=== PATIENT | female | born 1995 | race Caucasian/White ===

== ENCOUNTER 2021-02-02 07:35 | Day surgery (SDC) | payer OTHER ==
--- NOTE | 2021-01-26 11:24 | History and Physical Report ---
History of Present Illness Date of examination: 01/26/21 Chief complaint: desiring permanent sterilization History of present illness: 25 yo c/b asthma (advair PRN), bipolar disorder (no meds), fibroid uterus (on prometrium), hx HSV (on valtrex suppression), hx Chlamydia presenting daniel ing permanent sterilization. Completed childbearing and no longer wishes to conceive. Past History Past Medical History: asthma, other (bipolar disorder, fibroid uterus) Past Surgical History: other (tooth extraction) [employer] History: chlamydia, herpes Family/Genetic History: heart disease Social history: no significant social history - Obstetrical History : 4 Para: 4 Hx # Term Pregnancies: 4 Number of Living Children: 4 Medications and Allergies Allergies Allergy/AdvReac Type Severity Reaction Status Date / Time albuterol Allergy Intermediate Hives Uncoded 01/27/21 19:41 Home Medications Medication Instructions Recorded Confirmed Last Taken Type Progesterone, Micronized 200 mg PO QPM 01/27/21 01/27/21 Unknown History [Progesterone] Valacyclovir HCl [Valacyclovir] 500 mg PO DAILY 01/27/21 01/27/21 Unknown History Review of Systems All systems: negative (expect HPI) - Physical Exam Cardiovascular: Regular rate Lungs: Positive: Clear to auscultation Abdomen: Positive: normal appearance, normal bowel sounds Uterus: Positive: normal size Extremities: Positive: normal Results Result Diagrams: 01/28/21 09:30 All other labs normal. Assessment and Plan - Patient Problems (1) Sterilization Current Visit: No Status: Acute Plan to address problem: To OR for GRANT Garvin --Consented in the chart --Questions solicited and answered
[2021-01-28 09:46] LABS: Basophils # (Auto) 0.1 K/mm3 (0.0-0.1); Basophils % (Auto) 0.9 % (0.0-1.8); Eosinophils # (Auto) 0.1 K/mm3 (0.0-0.4); Eosinophils % (Auto) 0.9 % (0.0-4.3); Hemoglobin 14.4 gm/dl (10.1-14.3); Lymphocytes # (Auto) 2.3 K/mm3 (1.2-5.4); Lymphocytes % (Auto) 36.9 % (13.4-35.0); Mean Corpuscular HGB Conc 34 % (30-34); Mean Corpuscular Volume 94 fl (79-97); Monocytes # (Auto) 0.4 K/mm3 (0.0-0.8); Monocytes % (Auto) 5.9 % (0.0-7.3); Platelet Count 189 K/mm3 (140-440); Red Blood Count 4.59 M/mm3 (3.65-5.03); Red Cell Distribution Width 14.3 % (13.2-15.2)
[2021-02-02] MEDS ORDERED: ONDANSETRON 4 MG/2 ML INJ IV PRN (08:39)
[2021-02-02] MEDS ORDERED: MAGNESIUM OXIDE 400 MG TAB PO NR (08:39)
[2021-02-02] MEDS ORDERED: ACETAMINOPHEN 500 MG TAB PO NR (08:39)
[2021-02-02] MEDS ORDERED: HYDROmorphone 1 MG/1 ML INJ IV PRN ×2 (08:39)
--- NOTE | 2021-02-02 08:41 | Anesthesia Consultation ---
Anesthesia Consult and Med Hx Date of service: 02/02/21 - Airway Anesthetic Teeth Evaluation: Good ROM Head & Neck: Adequate Mental/Hyoid Distance: Adequate Mallampati Class: Class II Intubation Access Assessment: Good - Pre-Operative Health Status ASA Pre-Surgery Classification: ASA2 Proposed Anesthetic Plan: General - Pulmonary Hx Smoking: Yes Hx Asthma: Yes (Last treated 2014) COPD: No Hx Pneumonia: No Hx Sleep Apnea: No - Cardiovascular System Hx Hypertension: No - Central Nervous System Hx Seizures: No Hx Psychiatric Problems: Yes - Endocrine Hx Renal Disease: No Hx End Stage Renal Disease: No Hx Hypothyroidism: No Hx Hyperthyroidism: No - Hematic Hx Anemia: No Hx Sickle Cell Disease: No - Other Systems Hx Alcohol Use: Yes (Occas) Hx Substance Use: Yes (Marijauna daily) Hx Cancer: No
--- NOTE | 2021-02-02 08:41 | Anesthesia Day of Surgery ---
Anesthesia Day of Surgery - Day of Surgery Patient Examined: Yes Patient H&P Reviewed: Yes Patient is NPO: Yes
[2021-02-02] MEDS ORDERED: LACTATED RINGERS 1,000 ML IV SCH (08:45)
[2021-02-02] MEDS ORDERED: MIDAZOLAM 2 MG/2 ML INJ IV NR (09:00)
[2021-02-02] MEDS ORDERED: CELECOXIB 200 MG CAP PO NR (09:00)
[2021-02-02] MEDS ORDERED: ONDANSETRON 4 MG/2 ML INJ ONE (09:33)
[2021-02-02] MEDS ORDERED: dexAMETHasone 20 MG/5 ML VIAL ONE (09:33)
[2021-02-02] MEDS ORDERED: propofoL 200 MG/20 ML VIAL IV ONE (09:33)
[2021-02-02] MEDS ORDERED: fentaNYL 100 MCG/2 ML INJ ONE ×2 (09:33→10:23)
[2021-02-02] MEDS ORDERED: LIDOCAINE PF 100 MG/5 ML (CARDIAC SYRINGE) IV ONE (09:33)
[2021-02-02] MEDS ORDERED: ROCURONIUM 50 MG/5 ML INJ IV ONE (09:33)
[2021-02-02] MEDS ORDERED: SODIUM CHLORIDE 0.9% IRRIG SOLN 2000 ML IR ONE (09:36)
[2021-02-02] MEDS ORDERED: BUPIVACAINE/PF (0.25%) 2.5 MG/ML 30 ML VIAL INFILTRATI ONE (09:37)
[2021-02-02] MEDS ORDERED: BUPIVACAINE/PF (0.5%) 5 MG/1 ML 30 ML VIAL INFILTRATI ONE ×2 (10:08→10:27)
[2021-02-02] MEDS ORDERED: GLYCOPYRROLATE 0.4 MG/2 ML INJ ONE ×2 (10:34)
[2021-02-02] MEDS ORDERED: KETOROLAC 30 MG/1 ML INJ ONE (10:34)
[2021-02-02] MEDS ORDERED: NEOSTIGMINE 10MG/10 ML INJ MDV ONE (10:34)
[2021-02-02] MEDS ORDERED: oxyCODONE /ACETAMINOPHEN 5-325MG TAB PO PRN (10:44)
--- NOTE | 2021-02-02 10:44 | Procedure Note ---
Date of procedure: 02/02/21 Pre-op diagnosis: desiring permanent sterilization Post-op diagnosis: same Procedure: Preoperative diagnosis: Multiparous woman desiring permanent sterilization Postoperative diagnosis: Same Operation performed: 1. Exam under anesthesia 2. Laparoscopic bilateral tubal ligation with Filshie clips Surgeon: Milady Greer Anesthesia: General endotracheal anesthesia Estimated blood loss 10 cc IVF 600 UOP 150 Pathology Specimens: none Complications none Disposition and condition: To the PACU in stable condition and then discharged home Findings: 1. Small, mobile, anteverted uterus without adnexal masses on EUA 2. Normal uterus and bilateral tubes and ovaries on laparoscopy 3. Normal-appearing liver, gallbladder next Statement of medical necessity 25 yo G 4 P 4 who desires permanent sterilization. The patient was extensively counseled and offered reversal methods of contraception but declined. She was informed about the procedure failure rates and regret rates under the age of 30 years. The procedure risk, benefits, indications and alternatives were thoroughly reviewed with patient. Description of operation: After obtaining informed consent, the patient was taken to the operating room where satisfactory general endotracheal anesthesia was established. The patient was placed in modified supine position using Kahlil stirrups ensuring proper positioning and cushioning to avoid nerve injury. An exam under anesthesia was performed with the findings noted above. She was prepped and draped in the usual sterile fashion. Straight catheterization of the bladder was performed. A Bioapterare manipulator was placed in order to aid in uterine manipulation. Attention was directed to the abdomen. A 5 mm incision was placed supraumbilically. With the patient horizontal, the camera and 5 mm trocar were introduced into the abdominal cavity while tenting up the abdominal wall with towel clips in order to gain entry into the abdominal cavity. Intraperitoneal placement was confirmed with initial pressure of 20 mmHg on insufflation. Pneumoperitoneum was obtained in the placed and the patient was placed in Trendelenburg position. A midline suprapubic incision was made with a scalpel and a 8 mm trocar was placed under direct visualization. The blunt grasper was used in order to inspect the pelvis with the findings noted above. The fallopian tubes were identified and followed out to the fimbriated ends. The entire mid isthmic girth of the left tube was grasped perpendicularly without difficulty with applicator. The clip was applied and good applied with tubal blanching was noted. There was no bleeding in the mesosalpinx. The same procedure was performed on contralateral side. This procedure was completed x2 with a result of 2 Filshie clips on each tube. All instruments were removed. Suprapubic trocar was removed under direct verbalization with port site hemostasis noted. The pneumoperitoneum was reduced and the umbilical trocar was removed under direct visitation while with withdrawing the laparoscope. The patient was returned to horizontal dorsal supine position. The skin incisions were closed with 2-0 Vicryl in a subcuticular fashion and dressed with Dermabond. The Vcare manipulator was removed from vagina. The patient tolerated the procedure well was extubated without difficulty and transferred recovery room in good condition. Sponge, needle instrument counts were correct x2. There is no surgical or anesthetic complications. Anesthesia: GETA Surgeon: MILADY GREER JR Estimated blood loss: other (10cc) IV fluids: 600 Urine output: 150 Pathology: none Condition: stable Disposition: same day
[2021-02-02] MEDS ORDERED: IBUPROFEN 600 MG TAB PO PRN (11:30)
[2021-02-02] MEDS ORDERED: IPRATROPIUM 0.02% NEBU 2.5 ML IH ONE (11:49)
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
[2021-02-02 19:41] VITALS: BP 136/87
--- NOTE | 2021-02-03 18:01 | Event Note ---
Date: 02/03/21 (Fingers) In PACU yesterday, patient had swollen fingers bilaterally. Today at 15:28, I spoke with patient who said they are completely resolved. She feels it was due to the IVF given.
== END 2021-02-02 14:20 | disposition home or self-care (01) ==
LOC: OR 07:35
PROVIDERS: ATTEND Obstetrics & Gynecology
DX: Z30.2 Encounter for sterilization (principal); J45.909 Unspecified asthma, uncomplicated; M19.90 Unspecified osteoarthritis, unspecified site; D50.0 Iron deficiency anemia secondary to blood loss (chronic); F17.210 Nicotine dependence, cigarettes, uncomplicated; Z79.899 Other long term (current) drug therapy; Z98.890 Other specified postprocedural states; Z20.822 Contact with and (suspected) exposure to COVID-19
CPT/HCPCS: 36415; 45990; 58671; 84703; 85025; 86850; 86900; 86901; A4217; J1100; J1170; J1885; J2001; J2250; J2405; J2704; J2710; J3010; J7120; U0003; A4264